=== PATIENT | female | born 1975 | race Hispanic/Latino ===

== ENCOUNTER → 2017-07-20 | Outpatient (CLI) | payer MEDICARE ==
[~2017-07-20] MED LIST: ACET-66 PO; ALPR2TAB7 PO; LAMO300T2 PO; LORA10TA45 PO; MULT-1203 PO
== END | disposition home or self-care (01) ==
LOC: RAH 09:53
PROVIDERS: ATTEND Obstetrics & Gynecology
DX: R92.8 Other abnormal and inconclusive findings on diagnostic imaging of breast (principal); Z98.82 Breast implant status
CPT/HCPCS: 77066

== ENCOUNTER 2018-02-04 18:24 | Emergency (ER) | payer MEDICARE ==
[2018-02-04 18:52] LABS: APPEARANCE,URINE Cloudy (CLEAR); BILIRUBIN,URINE Small (NEGATIVE); COLOR,URINE Dark Yellow (YELLOW); GLUCOSE, URINE (UA) Negative (NEGATIVE); HCG,QUAL RESULT NEGATIVE (NEGATIVE); KETONES,URINE Trace mg/dL (NEGATIVE); LEUKOCYTE ESTERASE ,URINE Trace (NEGATIVE); NITRATE,URINE Negative (NEGATIVE); OCCULT BLOOD,URINE Negative (NEGATIVE); PROTEIN,URINE POS 1+ (NEGATIVE)
[2018-02-04 19:04] LABS: BACTERIA,URINE Moderate /HPF (None Seen)
[2018-02-04] MEDS ORDERED: DiphenhydrAMINE HCL 50 MG/ML VIAL ONE (19:32)
[2018-02-04] MEDS ORDERED: ONDANSETRON HCL 4 MG/2 ML VIAL ONE (19:32)
[2018-02-04] MEDS ORDERED: SODIUM CHLORIDE 0.9% 1000ML 2,000 ML IV ONE (19:32)
[2018-02-04] MEDS ORDERED: KETOROLAC TROMETHAMINE 30MG/ML ONE (19:33)
[2018-02-04 19:38] LABS: BASOPHILS % (AUTO) 0.5 % (0.0-5.0); EOSINOPHILS % (AUTO) 0.1 % (0.0-8.0); HEMATOCRIT 39.8 % (36-48); LYMPHOCYTES % (AUTO) 24.6 % (21.0-51.0); MEAN CORPUSCULAR HEMOGLOBIN 31.8 pg (27.0-33.0); MEAN CORPUSCULAR VOLUME 90.8 fL (79-99); MONOCYTES % (AUTO) 3.7 % (3.0-13.0); NEUTROPHILS % (AUTO) 71.1 % (40.0-77.0); PLATELET COUNT (AUTO) 141 K/uL (130-400); RED BLOOD CELL COUNT(AUTO) 4.39 MIL/uL (4.00-5.50); RED CELL DISTRIBUTION WIDTH 12.1 % (11.0-15.5); WHITE BLOOD COUNT (AUTO) 6.7 K/uL (4.8-10.8)
[2018-02-04] MEDS ORDERED: METOCLOPRAMIDE 10 MG/2 ML VIAL ONE (19:47)
[2018-02-04 20:08] LABS: CREATININE 0.9 mg/dL (0.5-1.5); POTASSIUM 3.5 mmol/L (3.5-5.1)
== END 2018-02-04 21:45 | disposition home or self-care (01) ==
LOC: EDH 18:24
DX: E86.9 Volume depletion, unspecified (principal); M62.830 Muscle spasm of back; R51 Headache; Z88.8 Allergy status to other drugs, medicaments and biological substances
CPT/HCPCS: 36415; 80048; 81001; 81025; 85025; 96361 ×2; 96374; 96375; 99284; J1200; J1885; J2405; J2765; J7030

== ENCOUNTER 2020-04-25 11:02 | Emergency (ER) | payer MEDICARE, OTHER ==
[2020-04-25 11:22] LABS: APPEARANCE,URINE Clear (CLEAR); BILIRUBIN,URINE Negative (NEGATIVE); COLOR,URINE Yellow (YELLOW); GLUCOSE, URINE (UA) Negative (NEGATIVE); KETONES,URINE Negative (NEGATIVE); LEUKOCYTE ESTERASE ,URINE Trace (NEGATIVE); NITRATE,URINE Negative (NEGATIVE); OCCULT BLOOD,URINE Negative (NEGATIVE); PH,URINE 5.5 (5.0-8.0); PROTEIN,URINE Negative (NEGATIVE); UROBILINOGEN,URINE 0.2 mg/dL (0.2-1.0)
[2020-04-25 11:30] LABS: BACTERIA,URINE Rare /HPF (None Seen); RBC,URINE None Seen /HPF (0-1); SQUAMOUS EPITHELIAL CELL,UR 0-2 /HPF (0-2); WBC,URINE 0-1 /HPF (0-1)
[2020-04-25 12:18] LABS: BASOPHILS % (AUTO) 0.2 % (0.0-5.0); EOSINOPHILS % (AUTO) 0.1 % (0.0-8.0); HEMATOCRIT 40.9 % (36-48); LYMPHOCYTES % (AUTO) 18.8 % (21.0-51.0); MEAN CORPUSCULAR HEMOGLOBIN 29.8 pg (27.0-33.0); MEAN CORPUSCULAR HGB CONC 32.8 g/dL (32.0-36.0); MEAN CORPUSCULAR VOLUME 90.9 fL (79-99); MONOCYTES % (AUTO) 4.3 % (3.0-13.0); NEUTROPHILS % (AUTO) 76.3 % (40.0-77.0); PLATELET COUNT (AUTO) 242 K/uL (130-400); RED CELL DISTRIBUTION WIDTH 11.8 % (11.0-15.5); WHITE BLOOD COUNT (AUTO) 8.6 K/uL (4.8-10.8)
[2020-04-25 12:27] LABS: CREATININE 0.9 mg/dL (0.5-1.5); POTASSIUM 3.8 mmol/L (3.5-5.1)
[2020-04-25 12:32] LABS: ALBUMIN 4.3 g/dL (3.5-5.0); BILIRUBIN,TOTAL 0.6 mg/dL (0.2-1.0); TOTAL PROTEIN, SERUM 8.1 g/dL (6.0-8.3)
[2020-04-25] MEDS ORDERED: SODIUM CHLORIDE 0.9% 1000ML 1,000 ML IV ONE (14:14)
[2020-04-25] MEDS ORDERED: TAMSULOSIN HCL 0.4 MG CAP.ER.24H ONE (14:14)
[2020-04-25] MEDS ORDERED: PROCHLORPERAZINE EDISYLATE 10 MG/2 ML VIAL ONE (14:14)
[2020-04-25] MEDS ORDERED: ONDANSETRON HCL 4 MG/2 ML VIAL ONE (14:14)
[2020-04-25] MEDS ORDERED: KETOROLAC TROMETHAMINE 30MG/ML ONE (14:14)
[2020-04-25] MEDS ORDERED: CEFTRIAXONE SODIUM 1 GM ONE (14:49)
== END 2020-04-25 16:05 | disposition home or self-care (01) ==
LOC: EDH 11:02
DX: N20.9 Urinary calculus, unspecified (principal); N23 Unspecified renal colic; E86.0 Dehydration; Z90.710 Acquired absence of both cervix and uterus; Z88.5 Allergy status to narcotic agent
CPT/HCPCS: 36415; 74176; 80053; 81001; 85025; 96361; 96365; 96375; 99284; J0696; J0780; J1885; J2405; J7030

== ENCOUNTER 2022-10-19 16:24 | Emergency (ER) | payer OTHER ==
[~2022-10-19] VITALS: Ht 154.9 cm; Wt 69.4 kg
[~2022-10-19 16:24] MED LIST changes: +CEPH500B PO; +KETO10TA2 PO; +ONDA4TAB10 PO
[2022-10-19 17:17] LABS: RED BLOOD CELL COUNT(AUTO) 4.26 MIL/uL (4.00-5.50); WHITE BLOOD COUNT (AUTO) 8.1 K/uL (4.8-10.8)
[2022-10-19 17:18] LABS: BASOPHILS % (AUTO) 0.2 % (0.0-5.0); EOSINOPHILS % (AUTO) 1.1 % (0.0-8.0); HEMATOCRIT 39.5 % (36-48); LYMPHOCYTES % (AUTO) 42.6 % (21.0-51.0); MEAN CORPUSCULAR HGB CONC 33.4 g/dL (32.0-36.0); MEAN CORPUSCULAR VOLUME 92.7 fL (79-99); MONOCYTES % (AUTO) 5.8 % (3.0-13.0); NEUTROPHILS % (AUTO) 50.1 % (40.0-77.0); PLATELET COUNT (AUTO) 240 K/uL (130-400); RED CELL DISTRIBUTION WIDTH 12.2 % (11.0-15.5)
[2022-10-19 17:27] LABS: INR 0.93 (0.85-1.15)
[2022-10-19 17:31] LABS: ALBUMIN 3.8 g/dL (3.5-5.0); POTASSIUM 4.1 mmol/L (3.5-5.1); TOTAL PROTEIN, SERUM 7.4 g/dL (6.0-8.3)
[2022-10-19 17:35] LABS: APPEARANCE,URINE CLOUDY (CLEAR); BILIRUBIN,URINE NEGATIVE (NEGATIVE); COLOR,URINE YELLOW (YELLOW); GLUCOSE, URINE (UA) NEGATIVE (NEGATIVE); KETONES,URINE NEGATIVE (NEGATIVE); LEUKOCYTE ESTERASE ,URINE 75 Leu/uL (NEGATIVE); NITRATE,URINE NEGATIVE (NEGATIVE); OCCULT BLOOD,URINE NEGATIVE (NEGATIVE); PROTEIN,URINE NEGATIVE (NEGATIVE); UROBILINOGEN,URINE 0.2 mg/dL (0.2-1.0)
[2022-10-19 17:38] LABS: BACTERIA,URINE RARE /HPF (None Seen); SQUAMOUS EPITHELIAL CELL,UR MANY /HPF (0-2)
[2022-10-19 17:41] LABS: AMPHET/METH SCREEN,URINE NEGATIVE (NEGATIVE); BARBITURATE SCREEN, URINE NEGATIVE (NEGATIVE); BENZODIAZEPINES SCREEN,URINE POSITIVE (NEGATIVE); CANNABINOID SCREEN,URINE NEGATIVE (NEGATIVE); COCAINE SCREEN,URINE NEGATIVE (NEGATIVE); OPIATE SCREEN,URINE NEGATIVE (NEGATIVE); PHENCYCLIDINE SCREEN,URINE NEGATIVE (NEGATIVE)
[2022-10-19] MEDS ORDERED: IOHEXOL-350 75 ML VIAL IV ONE (22:49)
[2022-10-19] MEDS ORDERED: DiphenhydrAMINE HCL 50 MG/ML VIAL IV ONE (23:00)
[2022-10-19] MEDS ORDERED: METOCLOPRAMIDE 10 MG/2 ML VIAL IVP ONE (23:00)
[2022-10-19] MEDS ORDERED: KETOROLAC 30MG VIAL (30MG/ML) IVP ONE (23:00)
[2022-10-20] MEDS ORDERED: IBUP-1493 PO (00:28)
[2022-10-20 00:54] VITALS: BP 114/68; PULSE 76; RESP 16; O2SAT 98
== END 2022-10-20 00:56 | disposition home or self-care (01) ==
LOC: EDH 16:24
DX: G43.909 Migraine, unspecified, not intractable, without status migrainosus (principal); F41.9 Anxiety disorder, unspecified; Z88.5 Allergy status to narcotic agent; Z90.710 Acquired absence of both cervix and uterus
CPT/HCPCS: 70450; 99284; 96374; 96375; 84484; 80053; 80305; 85025; 85610; 85730; 87088; 81001; 36415; 70496; 70498; 93005; J1200; J1885; J2765; Q9967

== ENCOUNTER 2024-04-23 11:33 | Emergency (ER) | payer OTHER ==
[~2024-04-23] VITALS: Ht 154.9 cm; Wt 65.8 kg
[~2024-04-23 11:33] MED LIST changes: +IBUP-1493 PO; +ONDA-243 PO; -ONDA4TAB10 PO
--- NOTE | 2024-04-23 11:44 | ERN ---
ED Note History of Present Illness Stated Complaint: FLU SYMPTOMS Chief Complaint: Flu Symptoms Time Seen by MD: 11:35 Dictation: PATIENT IS A 48-YEAR-OLD FEMALE WITH FLU-LIKE SYMPTOMS TO INCLUDE RIGHT-SIDED HEADACHE, BODY ACHES, SORE THROAT WITH PAINFUL SWALLOWING. CLEAR RHINITIS ONSET WEDNESDAY. NO NAUSEA NO VOMITING NO DIARRHEA. NO LOSS OF TASTE OR SMELL. SHE STATES ONE OF HER COWORKERS IS SICK WITH THE SAME SYMPTOMS. Allergies: Coded Allergies: cyclobenzaprine (Unverified Allergy, Unknown, 10/19/22) meperidine (Unverified Allergy, Unknown, HOT FLASHES / BURNING UP , 12/21/16) Home Meds Active Scripts Amoxicillin/Potassium Clav (Amox Tr-K Clv 875-125 mg Tab) 875 Mg-125 Mg Tablet, 1 EACH PO BID for 7 Days, #14 TAB 0 Refills Prov:NII GALEANO NP 04/23/24 Oseltamivir Phosphate (Tamiflu) 75 Mg Cap, 75 MG PO BID for 5 Days, #10 CAP Prov:NII GALEANO HAND CANDLE DIPPER 04/23/24 Ibuprofen (Motrin/Advil) 800 Mg Tab, 800 MG PO TID, #30 TAB Prov:CASANDRA LÓPEZ MD 10/20/22 Ondansetron (Ondansetron Odt) 4 Mg Tab.rapdis, 4 MG PO every 6 hours for nausea/vomiting, #20 TAB Prov:RONNIE REYNA NP 12/20/21 Ondansetron (Ondansetron Odt) 4 Mg Tab.rapdis, 4 MG PO ONCE for nausea/vomiting, #20 TAB Prov:RONNIE REYNA HAND CANDLE DIPPER 12/20/21 Ketorolac Tromethamine (Ketorolac Tromethamine) 10 Mg Tablet, 10 MG PO every 6 hours for pain, #20 TAB Prov:RONNIE REYNA HAND CANDLE DIPPER 12/20/21 Cephalexin Monohydrate (Keflex) 500 Mg Cap, 1000 MG PO BID for 7 Days, #28 CAP Prov:RONNIE REYNA NP 12/20/21 Reported Medications Loratadine (Allergy) 10 Mg Tablet, 10 MG PO AM, TAB 12/22/16 Multivitamin (Multi Vitamin Daily) 1 Each Tablet, 1 EACH PO AM, TAB 12/21/16 Acetaminophen (Tylenol) 500 Mg Tab, 500 MG PO AD, TAB 12/21/16 Lamotrigine (Lamotrigine) 300 Mg Tab.er.24, 300 MG PO PM 12/21/16 Alprazolam (Alprazolam) 2 Mg Tablet, 2 MG PO AM, TAB 12/21/16 Past Medical History Past Medical History: Anxiety, Bipolar, Kidney Stone Surgical History: Hysterectomy, Other Surgical History Other: LEFT FOOT, RT ELBOW, BREAST Family History: Negative Social History: Lives with family History: Not Applicable RN Note Reviewed/Agreed w/PFSH: Yes Review of System Dictation CONSTITUTIONAL: NEGATIVE EXCEPT FOR HPI FEVER CHILLS HEAD/FACE: NEGATIVE EXCEPT FOR HPI EENT: NEGATIVE EXCEPT FOR HPI CLEAR RHINITIS WITH SORE THROAT, PAINFUL SWA LLOWING RESPIRATORY: NEGATIVE EXCEPT FOR HPI GASTROINTESTINAL/ABDOMINAL: NEGATIVE EXCEPT FOR HPI GENITOURINARY: NEGATIVE EXCEPT FOR HPI MUSCULOSKELETAL: NEGATIVE EXCEPT FOR HPI MALAISE INTEGUMENTARY: NEGATIVE EXCEPT FOR HPI NEUROLOGICAL/PSYCH: NEGATIVE EXCEPT FOR HPI RIGHT FRONTAL PARIETAL HEADACHE HEMATOLOGIC/LYMPHATIC: NEGATIVE EXCEPT FOR HPI ALL SYSTEMS NEGATIVE, EXCEPT NOTED ABOVE. 13 POINT REVIEW OF SYSTEMS ASSESSED AND ALL NEGATIVE EXCEPT FOR ABOVE. Initial Vital Sign VS Vital Signs Date Time Temp Pulse Resp B/P (MAP) Pulse Ox O2 Delivery O2 Flow Rate FiO2 04/23/24 11:41 100.2 119 16 127/80 97 Room Air 04/23/24 11:41 0 21 Physical Exam Dictation VITAL SIGNS REVIEWED GENERAL APPEARANCE: ALERT, ORIENTED X 3, MILD ACUTE DISTRESS, WELL DEVELOPED, NOURISHED. HEAD AND FACE: NON-TRAUMATIC. EYES: PERRL, PINK CONJUNCTIVAS, EYELID NO TRAUMA, ANTERIOR CHAMBER WITH ARCUS SENILIS. EARS: PINNAS INTACT AND NO SIGNS OF TRAUMA OR ERYTHEMA EAR CANALS CLEAR AND NO DISCHARGE TM NO ERYTHEMA NOSE: CLEAR DISCHARGE, NO BLEEDING. OROPHARYNX: MOUTH NORMAL, TONGUE PINK, PHARYNX CLEAR MODERATE PHARYNGEAL ERYTHEMA, TONSILS NO EXUDATES, NO ABSCESSES NOTED, MUCOUS MEMBRANE MOIST UVULA MID MIDLINE, VOICE IS CLEAR NECK: SUPPLE, NON-TENDER, NO THYROMEGALY, NO MASSES, NO JVD, NO BRUITS BREAST:DEFERRED CHEST:NO TENDERNESS, NO CREPITUS, NO PARADOXICAL MOVEMENT, NO RETRACTIONS LUNGS:CLEAR, WELL-VENTILATED, SYMMETRIC, NO RALES, NO WHEEZING, NO RHONCHI, NO STRIDOR, GOOD BREATH SOUNDS BILATERALLY HEART: REGULAR RATE, REGULAR RHYTHM, NO MURMUR, NO GALLOPS VASCULAR: NO PERIPHERAL EDEMA, ABDOMEN: SOFT, POSITIVE BOWEL SOUNDS, NONDISTENDED, NO GUARDING, NONTENDER, NO REBOUND, NO MASSES NO HEPATOMEGALY, NO SPLENOMEGALY, NO ROMERO'S SIGN, NO HERNIAS. RECTAL: DEFERRED GENITAL: DEFERRED NEUROLOGICAL: NORMAL SPEECH, MOTOR FUNCTION INTACT, SENSORY FUNCTION INTACT MUSCULOSKELETAL: NECK NONTENDER, FULL RANGE OF MOTION, BACK NONTENDER, FULL RANGE OF MOTION, EXTREMITIES: NONTENDER, FULL RANGE OF MOTION SKIN: COLOR PINK, DRY, NO TURGOR, NO RASH, NO LACERATIONS, NO ABRASIONS, NO CONTUSIONS. LYMPHATIC: DEFERRED Results (Laboratory/Radiology) Laboratory/Radiology Laboratory Tests Test 04/23/24 11:44 Influenza Type A Antigen Positive For Type A Influenza Type B Antigen Negative For Type B SARS-CoV-2 Antigen (Rapid) PRESUMPTIVE NEGATIVE Group A Streptococcus Rapid negative (NEGATIVE) Labs Reviewed?: Yes ED Course ED Course Orders Procedure Category Date Status Time Covid19 (Sars Antigen LAB 04/23/24 Complete Rapid) 11:41 Rapid (Group A Strep) LAB 04/23/24 Complete 11:41 Influenza Type A & B, LAB 04/23/24 Complete Rapid 11:41 Acetaminophen 500mg PHA 04/23/24 Complete Tab (Tylenol 500mg T 12:00 Current Medications Medications (Trade) Dose Ordered Sig/Denis Route PRN Reason Start Time Stop Time Status Last Admin Dose Admin Acetaminophen (TYLenol 500MG TAB) 1,000 mg ONCE ONCE PO 04/23/24 12:00 04/23/24 12:01 DC 04/23/24 13:03 Vital Signs Date Time Temp Pulse Resp B/P (MAP) Pulse Ox O2 Delivery O2 Flow Rate FiO2 04/23/24 13:05 100.0 105 16 127/80 98 Room Air* 0 21 04/23/24 13:03 100.0 04/23/24 11:41 100.2 119 16 127/80 97 Room Air* 0 21 04/23/24 11:41 100.2 119 16 127/80 97 Room Air 1235 PATIENT DISCHARGED HOME WITH INFLUENZA A, WE WILL BE PLACED ON TAMIFLU AND TOLD TO SEE YOUR PRIMARY CARE DOCTOR NO WORK UNTIL CLEARED Medical Decision Making MDM MEDICAL DISCHARGE MAKING BASED ON SWABS FOR FLU COVID AND STREP PATIENT INFLUENZA A POSITIVE DISCHARGED HOME WITH TAMIFLU AND IBUPROFEN REHYDRATION INSTRUCTIONS AND NO WORK UNTIL CLEARED BY HER DOCTOR ALSO WE WILL BE TREATED EMPIRICALLY FOR ACUTE PHARYNGITIS UNSPECIFIED DX & DISP Disposition: Discharge Departure Impression: Primary Impression: Influenza A Additional Impression: Acute pharyngitis, unspecified Condition: Stable Scripts Amoxicillin/Potassium Clav (Amox Tr-K Clv 875-125 mg Tab) 875 Mg-125 Mg Tablet 1 EACH PO BID for 7 Days, #14 TAB 0 Refills Prov: NII GALEANO HAND CANDLE DIPPER 04/23/24 Oseltamivir Phosphate (Tamiflu) 75 Mg Cap 75 MG PO BID for 5 Days, #10 CAP Prov: NII GALEANO HAND CANDLE DIPPER 04/23/24 Additional Instructions: FOLLOW-UP WITH PRIMARY CARE PROVIDER IN 1 TO 2 DAYS. TAKE MEDICATIONS DIRECTED HERE IN THE EMERGENCY ROOM. OKAY TO CONTINUE HOME MEDICATIONS UNLESS OTHERWISE DISCUSSED DURING YOUR VISIT IN THE EMERGENCY ROOM TODAY. RETURN TO YOUR NEAREST EMERGENCY ROOM IF SYMPTOMS WORSEN OR IF THERE IS NO IMPROVEMENT. CALL 911 IF YOU NEED IMMEDIATE ASSISTANCE. TAKE TYLENOL OR MOTRIN APUL-KIK-[id number] NEEDED AND IF NO CONTRAINDICATIONS ARE PRESENT. INCREASE ORAL HYDRATION. A WOUND CULTURE OR URINE CULTURE WAS ORDERED HERE IN THE EMERGENCY ROOM DEPARTMENT PLEASE FOLLOW-UP WITH PRIMARY CARE PROVIDER AND ADVISE THEM TO GET REPEAT PORTS FROM OUR FACILITY. IF YOU HAD ANY RAJEEV WRAP/SPLINTS THAT WERE APPLIED HERE, PLEASE DO NOT REMOVE THEM UNTIL YOU SEE YOUR PRIMARY CARE OR SPECIALTY. TAKE TAMIFLU AND AUGMENTIN DIRECTED UNTIL GONE. INCREASE YOUR WATER INTAKE. NO WORK UNTIL CLEARED BACK BY YOUR PRIMARY CARE DOCTOR. Referrals: CONTRERAS JIANG (PCP) I have reviewed the case, and I agree with, Diagnosis and Plan I performed the substantive portion of the visit. I have reviewed and personally made and approve the management plan that is documented in the notes by myself or the GLENIS. I acknowledge full responsibility for the patient's management plan. NII GALEANO NP Apr 23, 2024 11:44 NEVILLE TIAN MD Apr 24, 2024 11:56
[2024-04-23 12:02] LABS: RAPID GROUP A STREP negative (NEGATIVE)
[2024-04-23 12:12] LABS: COVID19 (SARS ANTIGEN RAPID) PRESUMPTIVE NEGATIVE (NEGATIVE); INFLUENZA TYPE B Negative For Type B (NEGATIVE)
[2024-04-23 12:23] LABS: INFLUENZA TYPE A Positive For Type A (NEGATIVE)
[2024-04-23] MEDS ORDERED: OSEL75 PO (12:38)
[2024-04-23] MEDS ORDERED: AMOX1TAB16 PO (12:38)
[2024-04-23 13:03] VITALS: TEMP 100
[2024-04-23] MEDS: acetaMINOPHEN 500 MG TABLET PO ONE (13:03)
[2024-04-23 13:05] VITALS: BP 127/80; PULSE 105; RESP 16; TEMP 100; O2SAT 98
== END 2024-04-23 13:33 | disposition home or self-care (01) ==
LOC: EDH 11:33
DX: J10.1 Influenza due to other identified influenza virus with other respiratory manifestations (principal); F41.9 Anxiety disorder, unspecified; F31.9 Bipolar disorder, unspecified; Z79.1 Long term (current) use of non-steroidal anti-inflammatories (NSAID); Z88.5 Allergy status to narcotic agent; Z90.710 Acquired absence of both cervix and uterus; Z20.822 Contact with and (suspected) exposure to COVID-19
CPT/HCPCS: 87426; 87804; 87880; 99282